=== PATIENT | female | born 1990 | race African-American/Black ===

== ENCOUNTER 2021-10-15 08:59 | Emergency (ER) | payer MEDICAID ==
[~2021-10-15] VITALS: Ht 160 cm; Wt 54.4 kg
--- NOTE | 2021-10-15 09:03 | NUR ---
BIBA TO BED 10
[2021-10-15] MEDS ORDERED: levETIRAcetam 1,000 MG in NACL 0.9% 100 ML IV ONE (09:10)
--- NOTE | 2021-10-15 09:10 | NUR ---
31 y/o female biba from [facility], pt had 2 witnessed seizures lasting 2 min long, 1 min apart. pt was seen slowly assisted to ground before collapsing. pt given 2.5mg versed intranasal on scene, pt gcs 13 confused/purposeful/spontaneous. a&o x0, mumbles when first arrived. glucose upon arrival 110. skin is pink/warm/dry. lungs clear bl, heart rate even and regular. pt denies any fever, cp, sob, or cough at this time. pt states pain is 7/10 at this time. patient positioned for comfort. hob elevated. bed down. ermd made aware of pt. pmh: seizures, epilepsy allergy: morphine (hives), shellfish med: keppra
[2021-10-15 09:19] VITALS: BP 105/55
--- NOTE | 2021-10-15 09:24 | NUR ---
X-Ray at bedside.
[2021-10-15 09:34] LABS: BASOPHILS % (AUTO) 0.5 % (0.0-2.0); EOSINOPHILS % (AUTO) 0.8 % (0.0-4.0); HEMATOCRIT 39.7 % (36-48); HEMOGLOBIN 13.2 g/dL (12.0-16.0); LYMPHOCYTES % (AUTO) 19.6 % (20.5-51.1); MEAN CORPUSCULAR HEMOGLOBIN 29 pg (27-31); MEAN CORPUSCULAR HGB CONC 33 g/dL (33-37); MEAN CORPUSCULAR VOLUME 88.1 fL (80-94); MONOCYTES # (AUTO) 0.4 K/uL (0.8-1.0); MONOCYTES % (AUTO) 8.2 % (1.7-9.3); NEUTROPHILS # (AUTO) 3.7 K/uL (1.8-7.7); NEUTROPHILS % (AUTO) 70.9 % (42.2-75.2); PLATELET COUNT (AUTO) 228 K/uL (140-450); RED CELL DISTRIBUTION WIDTH 12.7 % (11.6-13.7); WHITE BLOOD COUNT (AUTO) 5.3 K/uL (4.8-10.8)
[2021-10-15] MEDS ORDERED: levETIRAcetam 100 MG/ML VIAL IV ONE (09:34)
--- NOTE | 2021-10-15 09:34 | NUR ---
pt taken to ct via [facility] at this time
[2021-10-15 09:43] LABS: ALBUMIN 4.3 g/dL (3.4-5.0); CARBON DIOXIDE 20.9 mmol/L (21-32); CREATININE 0.9 mg/dL (0.6-1.3); POTASSIUM 3.9 mmol/L (3.5-5.1); TOTAL BILIRUBIN 0.5 mg/dL (0.0-1.0)
--- NOTE | 2021-10-15 10:05 | NUR ---
pt a&ox4 at this time, pt is able to communicate clearly, gcs 15.
[2021-10-15] MEDS ORDERED: ACETAMINOPHEN EXTRA STRENGTH 500 MG TAB PO ONE (11:10)
--- NOTE | 2021-10-15 12:00 | NUR ---
Patient discharged with v/s stable. Written and verbal after care instructions given and explained. Patient verbalized understanding. Ambulatory with unsteady gait, pt walked out of hospital at this time, states she will provide her own transport. All questions addressed prior to discharge. Advised to follow up with PMD.
--- NOTE | 2021-10-15 12:05 | NUR ---
pt refused [employer] transport, states she will provide her own, states "i have to go". gait was unsteady, refused to ambulate back to bed. ermd made aware.
[2021-10-15 12:07] VITALS: BP 98/47
--- NOTE | 2021-10-15 12:18 | NUR ---
pt brother was notified about pt leaving at this time, karine ([phone]) states she is 5 minutes away from him at this time.
== END 2021-10-15 12:07 | disposition home or self-care (01) ==
LOC: MED 08:59
DX: G40.509 Epileptic seizures related to external causes, not intractable, without status epilepticus (principal); Z88.5 Allergy status to narcotic agent; Z91.013 Allergy to seafood; W18.39XA Other fall on same level, initial encounter; Y92.89 Other specified places as the place of occurrence of the external cause; Y93.89 Activity, other specified; Y99.8 Other external cause status
CPT/HCPCS: 36415; 70450; 71045; 80053; 81002; 81025; 85025; 93005; 96365; 99285; J1953